=== PATIENT | male | born 1985 | race Hispanic/Latino ===

== ENCOUNTER 2017-11-06 21:52 | Emergency (ER) | payer SELFPAY ==
--- NOTE | 2017-11-06 22:54 | RAD ---
RIGHT FOOT THREE VIEWS: 11/06/17 HISTORY: Foot pain. There is no signs of fracture or dislocation. No other significant bony findings. IMPRESSION: Negative right foot. POS: [facility]
--- NOTE | 2017-11-06 22:55 | RAD ---
RIGHT ANKLE THREE VIEWS: 11/06/17 HISTORY: Ankle pain. There is no signs of fracture, dislocation or joint effusion. Tiny spurs are present of the calcaneus . IMPRESSION: No acute findings. POS: [facility]
== END 2017-11-07 00:39 | disposition left against medical advice (07) ==
LOC: ERS 21:52
DX: Z53.21 Procedure and treatment not carried out due to patient leaving prior to being seen by health care provider (principal)

== ENCOUNTER 2020-12-18 13:10 | Inpatient (IN) | payer SELFPAY ==
[~2020-12-18 13:10] MED LIST: Iopamidol-370 76% 500 ML 1 ML ONE
[2020-12-18] MEDS ORDERED: Ondansetron ODT 4 MG TAB ONE (14:22)
[2020-12-18 14:32] LABS: #Lymphocytes 0.9 thou/uL (1.20-3.40); #Monocytes 0.9 thou/uL (0.11-0.59); %Basophils 0.1 % (0.0-1.0); %Eosinophils 0.3 % (0.0-10.0); %Lymphocytes 7.1 % (21.0-51.0); %Monocytes 6.9 % (0.0-10.0); %Neutrophils 85.6 % (42.0-75.0); Hemoglobin 16.1 g/dL (14.0-18.0); Mean Corpuscular HGB CONC 34.6 g/dL (32.0-36.0); Mean Corpuscular Hemoglobin 34.5 pg (27.0-31.0); Mean Corpuscular Volume 99.9 fL (78.0-98.0); Mean Platelet Volume 7.5 fL (7.4-10.4); Platelet Count 236 thou/uL (130-400); RBC Distribution Width 11.4 % (11.5-14.5); Red Blood Cell (RBC) Count 4.65 mill/uL (4.70-6.10); White Blood Cell (WBC) Count 12.8 thou/uL (4.8-10.8)
[2020-12-18] MEDS ORDERED: Promethazine HCl 25 MG/ML VIAL ONE (14:40)
[2020-12-18] MEDS ORDERED: Fentanyl 100 MCG/2 ML VIAL ONE (14:40)
[2020-12-18] MEDS ORDERED: Famotidine/PF 20 mg/2ml Vial ONE (14:41)
[2020-12-18 14:49] LABS: ALT (SGPT) 107 U/L (8-55); AST (SGOT) 107 U/L (5-34); Albumin 4.4 g/dL (3.5-5.0); Alkaline Phosphatase 97 U/L (40-110); Anion Gap 19 mmol/L (10-20); BUN (Urea Nitrogen) 12 mg/dL (8.9-20.6); Bilirubin, Total 0.9 mg/dL (0.2-1.2); Calc. Creatinine Clearance 0 mL/min (70-130); Calcium 9.5 mg/dL (7.8-10.44); Carbon Dioxide 17 mmol/L (22-29); Chloride 101 mmol/L (98-107); Globulin 4.3 g/dL (2.4-3.5); Glucose 130 mg/dL (70-105); Lipase 897 U/L (8-78); Potassium 3.7 mmol/L (3.5-5.1); Protein, Total 8.7 g/dL (6.0-8.3); Sodium 133 mmol/L (136-145)
[2020-12-18] MEDS ORDERED: Morphine 4 MG/ML VIAL ONE ×2 (15:22→16:11)
[2020-12-18 15:47] LABS: Prothrombin Time 13.5 sec (12.0-14.7)
[2020-12-18 15:50] LABS: PTT 20.6 sec (22.9-36.1)
[2020-12-18] MEDS ORDERED: Ondansetron PF 4 MG/2 ML Vial IVP PRN (18:14)
[2020-12-18] MEDS ORDERED: Metoclopramide HCl 10 MG/2 ML VIAL IVP PRN (18:14)
[2020-12-18] MEDS ORDERED: Morphine 2 MG/ML VIAL SLOW IVP PRN (18:17)
[2020-12-18] MEDS ORDERED: Morphine 2 MG/ML VIAL ONE (18:39)
[2020-12-18] MEDS ORDERED: Diazepam 5 MG TAB PO PRN (18:40)
[2020-12-18] MEDS ORDERED: Thiamine HCl 200 MG/2 ML VIAL IM SCH (18:45)
[2020-12-18] MEDS ORDERED: Diazepam 5 MG TAB PO SCH (18:45)
[2020-12-18] MEDS: Sodium Chloride 0.9% 1,000 ML IV SCH (19:16)
[2020-12-18] MEDS ORDERED: Diazepam 5 MG TAB ONE (20:06)
[2020-12-18 21:52] VITALS: BMI 31.0
[2020-12-18 23:41] LABS: SARS-CoV-2 PCR by NAA Not Detected (NotDetected)
[2020-12-19] MEDS: Sodium Chloride 0.9% 1,000 ML IV SCH ×7 (00:39→23:28)
[2020-12-19] MEDS ORDERED: Diazepam 5 MG TAB PO PRN (04:00)
[2020-12-19] MEDS: Ketorolac Tromethamine 30 MG/ML VIAL IVP PRN ×2 (04:41→10:06)
[2020-12-19 06:01] LABS: #Lymphocytes 0.6 thou/uL (1.20-3.40); #Monocytes 0.8 thou/uL (0.11-0.59); #Neutrophils 9.6 thou/uL (1.40-6.50); %Basophils 0.2 % (0.0-1.0); %Eosinophils 0.3 % (0.0-10.0); %Lymphocytes 5.1 % (21.0-51.0); %Neutrophils 87.4 % (42.0-75.0); Hemoglobin 14.7 g/dL (14.0-18.0); Mean Corpuscular HGB CONC 34.8 g/dL (32.0-36.0); Mean Corpuscular Hemoglobin 34.8 pg (27.0-31.0); Mean Platelet Volume 7.4 fL (7.4-10.4); Platelet Count 175 thou/uL (130-400); RBC Distribution Width 11.2 % (11.5-14.5); Red Blood Cell (RBC) Count 4.24 mill/uL (4.70-6.10)
[2020-12-19 06:27] LABS: ALT (SGPT) 64 U/L (8-55); AST (SGOT) 46 U/L (5-34); Albumin 3.6 g/dL (3.5-5.0); Alkaline Phosphatase 71 U/L (40-110); Anion Gap 11 mmol/L (10-20); BUN (Urea Nitrogen) 6 mg/dL (8.9-20.6); Bilirubin, Total 0.8 mg/dL (0.2-1.2); Calc. Creatinine Clearance 197 mL/min (70-130); Calcium 8.1 mg/dL (7.8-10.44); Carbon Dioxide 23 mmol/L (22-29); Chloride 105 mmol/L (98-107); Globulin 3.2 g/dL (2.4-3.5); Glucose 107 mg/dL (70-105); Potassium 3.5 mmol/L (3.5-5.1); Protein, Total 6.8 g/dL (6.0-8.3); Sodium 135 mmol/L (136-145)
[2020-12-19] MEDS ORDERED: Folic Acid 1 MG TAB PO SCH (09:00)
[2020-12-19] MEDS ORDERED: Magnesium Oxide 400 MG TAB PO SCH (09:00)
[2020-12-19] MEDS ORDERED: Multivitamin W/ Minerals 1 TAB PO SCH (09:00)
[2020-12-19] MEDS ORDERED: Thiamine 100 MG TAB PO SCH (09:00)
[2020-12-20] MEDS: Sodium Chloride 0.9% 1,000 ML IV SCH (05:20)
[2020-12-20 05:25] VITALS: BP 127/70; TEMP 98.9
[2020-12-20 06:37] LABS: #Basophils 0.1 thou/uL (0.0-0.2); #Eosinphils 0.1 thou/uL (0.0-0.7); #Monocytes 1.1 thou/uL (0.11-0.59); #Neutrophils 9.8 thou/uL (1.40-6.50); %Basophils 0.5 % (0.0-1.0); %Eosinophils 0.8 % (0.0-10.0); %Lymphocytes 8.3 % (21.0-51.0); %Neutrophils 81.4 % (42.0-75.0); Hemoglobin 15.5 g/dL (14.0-18.0); Mean Corpuscular Hemoglobin 33.5 pg (27.0-31.0); Mean Platelet Volume 7.7 fL (7.4-10.4); Platelet Count 193 thou/uL (130-400); RBC Distribution Width 11.2 % (11.5-14.5); Red Blood Cell (RBC) Count 4.61 mill/uL (4.70-6.10)
[2020-12-20 06:52] LABS: Anion Gap 13 mmol/L (10-20); BUN (Urea Nitrogen) 4 mg/dL (8.9-20.6); Calc. Creatinine Clearance 189 mL/min (70-130); Calcium 9.1 mg/dL (7.8-10.44); Carbon Dioxide 21 mmol/L (22-29); Chloride 104 mmol/L (98-107); Glucose 130 mg/dL (70-105); Potassium 3.4 mmol/L (3.5-5.1); Sodium 135 mmol/L (136-145)
== END 2020-12-20 07:09 | disposition left against medical advice (07) | DRG 440 ==
LOC: ERS 13:10 → ERHOLD 17:32 → T4-A 21:47 → OBSVTOIN 12-19 12:44
PROVIDERS: ADMIT Internal Medicine; ATTEND Internal Medicine
PROC: HZ2ZZZZ Detoxification Services for Substance Abuse Treatment (ICD-10-PCS; principal; 2020-12-19)
DX: K85.20 Alcohol induced acute pancreatitis without necrosis or infection (principal); F10.20 Alcohol dependence, uncomplicated; Z20.822 Contact with and (suspected) exposure to COVID-19; Z71.41 Alcohol abuse counseling and surveillance of alcoholic
CPT/HCPCS: 36415; 71045; 74177; 80048; 80053; 83605; 83690; 83735; 84484; 85025; 85610; 85730; 86850; 86900; 86901; 93005; 94760; 96372; 96375; 96376; G0378; J1885; J2270; J2550; J3010; J3411; J3475; J3490; Q0162; Q9967; S0028; U0003; U0005

== ENCOUNTER 2021-05-06 15:56 | Emergency (ER) | payer SELFPAY ==
[2021-05-06] MEDS ORDERED: Ondansetron PF 4 MG/2 ML Vial ONE (16:42)
[2021-05-06] MEDS ORDERED: Famotidine/PF 20 mg/2ml Vial ONE (16:42)
[2021-05-06] MEDS ORDERED: Morphine 4 MG/ML VIAL ONE (16:42)
[2021-05-06 17:03] LABS: #Basophils 0.1 thou/uL (0.0-0.2); #Eosinphils 0.2 thou/uL (0.0-0.7); #Lymphocytes 1.3 thou/uL (1.20-3.40); #Neutrophils 11.4 thou/uL (1.40-6.50); %Basophils 0.7 % (0.0-1.0); %Eosinophils 1.1 % (0.0-10.0); %Lymphocytes 9.2 % (21.0-51.0); %Monocytes 7.4 % (0.0-10.0); %Neutrophils 81.7 % (42.0-75.0); Hemoglobin 15.5 g/dL (14.0-18.0); Mean Corpuscular HGB CONC 34.6 g/dL (32.0-36.0); Mean Corpuscular Hemoglobin 34.1 pg (27.0-31.0); Mean Corpuscular Volume 98.3 fL (78.0-98.0); Mean Platelet Volume 7.7 fL (7.4-10.4); Platelet Count 281 thou/uL (130-400); RBC Distribution Width 11.5 % (11.5-14.5); Red Blood Cell (RBC) Count 4.54 mill/uL (4.70-6.10); White Blood Cell (WBC) Count 13.9 thou/uL (4.8-10.8)
[2021-05-06 17:26] LABS: ALT (SGPT) 53 U/L (8-55); AST (SGOT) 35 U/L (5-34); Alkaline Phosphatase 88 U/L (40-110); Anion Gap 12 mmol/L (10-20); BUN (Urea Nitrogen) 9 mg/dL (8.9-20.6); Bilirubin, Total 0.4 mg/dL (0.2-1.2); Calc. Creatinine Clearance 0 mL/min (70-130); Calcium 9.3 mg/dL (7.8-10.44); Carbon Dioxide 26 mmol/L (22-29); Chloride 102 mmol/L (98-107); Globulin 3.6 g/dL (2.4-3.5); Glucose 95 mg/dL (70-105); Lipase 648 U/L (8-78); Potassium 3.9 mmol/L (3.5-5.1); Protein, Total 7.6 g/dL (6.0-8.3); Sodium 136 mmol/L (136-145)
== END 2021-05-06 18:27 | disposition home or self-care (01) ==
LOC: ERS 15:56
DX: K85.90 Acute pancreatitis without necrosis or infection, unspecified (principal)
CPT/HCPCS: 80053; 83690; 85025; 94760; 96374; 96375; J2270; J2405; S0028

== ENCOUNTER 2022-02-11 10:11 | Emergency (ER) | payer SELFPAY | END 2022-02-11 11:52 | disposition home or self-care (01) | LOC: ERS 10:11 | DX: B02.9 Zoster without complications (principal) | CPT/HCPCS: 99283 ==

== ENCOUNTER 2022-05-03 11:03 | Inpatient (IN) | payer SELFPAY ==
[2022-05-03 12:32] LABS: #Eosinphils 0.1 thou/uL (0.0-0.7); #Lymphocytes 1.3 thou/uL (1.20-3.40); #Monocytes 0.7 thou/uL (0.11-0.59); #Neutrophils 9.2 thou/uL (1.40-6.50); %Basophils 0.3 % (0.0-1.0); %Eosinophils 0.6 % (0.0-10.0); %Lymphocytes 11.8 % (21.0-51.0); %Monocytes 6.2 % (0.0-10.0); %Neutrophils 81.1 % (42.0-75.0); Hemoglobin 15.9 g/dL (14.0-18.0); Mean Corpuscular HGB CONC 34.9 g/dL (32.0-36.0); Mean Corpuscular Hemoglobin 33.9 pg (27.0-31.0); Mean Platelet Volume 7.8 fL (7.4-10.4); Platelet Count 285 thou/uL (130-400); RBC Distribution Width 11.2 % (11.5-14.5); Red Blood Cell (RBC) Count 4.69 mill/uL (4.70-6.10); White Blood Cell (WBC) Count 11.3 thou/uL (4.8-10.8)
[2022-05-03] MEDS ORDERED: Ketorolac Tromethamine 30 MG/ML VIAL ONE (12:42)
[2022-05-03 12:55] LABS: ALT (SGPT) 30 U/L (8-55); AST (SGOT) 29 U/L (5-34); Alkaline Phosphatase 75 U/L (40-110); Anion Gap 18 mmol/L (10-20); BUN (Urea Nitrogen) 11 mg/dL (8.9-20.6); Bilirubin, Total 1.5 mg/dL (0.2-1.2); Calc. Creatinine Clearance 0 mL/min (70-130); Calcium 9.2 mg/dL (7.8-10.44); Carbon Dioxide 19 mmol/L (22-29); Chloride 102 mmol/L (98-107); Estimated GFR 115; Globulin 3.7 g/dL (2.4-3.5); Glucose 106 mg/dL (70-105); Lipase 468 U/L (8-78); Potassium 3.7 mmol/L (3.5-5.1); Protein, Total 7.7 g/dL (6.0-8.3); Sodium 135 mmol/L (136-145)
[2022-05-03] MEDS ORDERED: Ondansetron PF 4 MG/2 ML Vial ONE (14:01)
[2022-05-03] MEDS ORDERED: Morphine 4 MG/ML VIAL ONE (14:01)
[2022-05-03] MEDS ORDERED: Multivitamins, Adult 10 ML, Thiamine HCl 100 MG, Folic Acid 1 MG in Dextrose 5 %-0.45 %... IV SCH (15:15)
[2022-05-03] MEDS ORDERED: Lorazepam 1 MG TAB PO PRN (15:19)
[2022-05-03] MEDS ORDERED: Lorazepam 2 MG/ML VIAL IM PRN (15:19)
[2022-05-03] MEDS ORDERED: Acetaminophen 325 MG TAB PO PRN (15:20)
[2022-05-03] MEDS ORDERED: Ondansetron PF 4 MG/2 ML Vial IVP PRN (15:20)
[2022-05-03] MEDS ORDERED: Ondansetron ODT 4 MG TAB PO PRN (15:20)
[2022-05-03] MEDS ORDERED: Electrolyte Replacement Protocol 1 EACH FS SCH (15:30)
[2022-05-03 15:59] VITALS: BMI 31.4
[2022-05-03 16:10] LABS: Magnesium 2.1 mg/dL (1.6-2.6)
[2022-05-03] MEDS ORDERED: Electrolyte Replacement Protocol FS PRN (16:15)
[2022-05-03] MEDS: Lorazepam 1 MG TAB PO SCH ×2 (16:34→22:34)
[2022-05-03] MEDS: Morphine 4 MG/ML VIAL SLOW IVP PRN ×2 (16:35→20:13)
[2022-05-03] MEDS: Sodium Chloride 0.9% 1,000 ML IV SCH ×2 (16:35→20:21)
[2022-05-03] MEDS: Ketorolac Tromethamine 30 MG/ML VIAL IVP PRN ×2 (18:35→23:40)
[2022-05-03] MEDS: Famotidine/PF 20 mg/2ml Vial SLOW IVP SCH (20:13)
[2022-05-04] MEDS: Morphine 4 MG/ML VIAL SLOW IVP PRN ×5 (01:38→20:27)
[2022-05-04] MEDS ORDERED: Pantoprazole 40 MG VIAL IVP SCH (02:00)
[2022-05-04] MEDS: Lorazepam 1 MG TAB PO SCH ×4 (03:06→20:38)
[2022-05-04] MEDS: Sodium Chloride 0.9% 1,000 ML IV SCH ×3 (05:15→18:14)
[2022-05-04] MEDS: Ketorolac Tromethamine 30 MG/ML VIAL IVP PRN (05:15)
[2022-05-04 07:31] LABS: #Eosinphils 0.1 thou/uL (0.0-0.7); #Lymphocytes 0.8 thou/uL (1.20-3.40); #Monocytes 1.1 thou/uL (0.11-0.59); #Neutrophils 14.2 thou/uL (1.40-6.50); %Basophils 0.2 % (0.0-1.0); %Eosinophils 0.3 % (0.0-10.0); %Lymphocytes 5.2 % (21.0-51.0); %Monocytes 6.5 % (0.0-10.0); %Neutrophils 87.7 % (42.0-75.0); Hemoglobin 15.2 g/dL (14.0-18.0); Mean Corpuscular HGB CONC 34.3 g/dL (32.0-36.0); Mean Corpuscular Hemoglobin 34.1 pg (27.0-31.0); Mean Corpuscular Volume 99.5 fl (78.0-98.0); Mean Platelet Volume 7.6 fL (7.4-10.4); Platelet Count 251 thou/uL (130-400); RBC Distribution Width 11.3 % (11.5-14.5); Red Blood Cell (RBC) Count 4.47 mill/uL (4.70-6.10); White Blood Cell (WBC) Count 16.1 thou/uL (4.8-10.8)
[2022-05-04 07:56] LABS: ALT (SGPT) 21 U/L (8-55); AST (SGOT) 16 U/L (5-34); Albumin 3.4 g/dL (3.5-5.0); Alkaline Phosphatase 62 U/L (40-110); Anion Gap 12 mmol/L (10-20); BUN (Urea Nitrogen) 5 mg/dL (8.9-20.6); Bilirubin, Total 1.8 mg/dL (0.2-1.2); Calc. Creatinine Clearance 185 mL/min (70-130); Calcium 8.2 mg/dL (7.8-10.44); Carbon Dioxide 19 mmol/L (22-29); Chloride 107 mmol/L (98-107); Estimated GFR 122; Globulin 2.9 g/dL (2.4-3.5); Glucose 110 mg/dL (70-105); Magnesium 1.8 mg/dL (1.6-2.6); Potassium 3.7 mmol/L (3.5-5.1); Protein, Total 6.3 g/dL (6.0-8.3); Sodium 134 mmol/L (136-145)
[2022-05-04 08:11] LABS: Lipase 1346 U/L (8-78)
[2022-05-04] MEDS: Folic Acid 1 MG TAB PO SCH (08:21)
[2022-05-04] MEDS: Famotidine/PF 20 mg/2ml Vial SLOW IVP SCH ×2 (08:21→20:27)
[2022-05-04] MEDS: Multivit, Therapeutic 1 TAB PO SCH (08:22)
[2022-05-04] MEDS: Thiamine 100 MG TAB PO SCH (08:22)
[2022-05-04] MEDS ORDERED: Lorazepam 1 MG TAB PO PRN (15:19)
[2022-05-05] MEDS: Morphine 4 MG/ML VIAL SLOW IVP PRN ×4 (00:56→15:59)
[2022-05-05] MEDS: Sodium Chloride 0.9% 1,000 ML IV SCH ×3 (00:57→13:23)
[2022-05-05] MEDS: Lorazepam 1 MG TAB PO SCH ×2 (02:38→09:09)
[2022-05-05 07:27] LABS: Hemoglobin 13.1 g/dL (14.0-18.0); Mean Corpuscular HGB CONC 34.4 g/dL (32.0-36.0); Mean Corpuscular Volume 99.1 fl (78.0-98.0); Mean Platelet Volume 7.8 fL (7.4-10.4); Platelet Count 222 thou/uL (130-400); RBC Distribution Width 11.3 % (11.5-14.5); Red Blood Cell (RBC) Count 3.84 mill/uL (4.70-6.10); White Blood Cell (WBC) Count 15.7 thou/uL (4.8-10.8)
[2022-05-05 07:44] LABS: Anion Gap 10 mmol/L (10-20); BUN (Urea Nitrogen) Less than 4 mg/dL (8.9-20.6); Calc. Creatinine Clearance 191 mL/min (70-130); Calcium 8.2 mg/dL (7.8-10.44); Carbon Dioxide 21 mmol/L (22-29); Chloride 105 mmol/L (98-107); Estimated GFR 123; Glucose 98 mg/dL (70-105); Potassium 3.3 mmol/L (3.5-5.1); Sodium 133 mmol/L (136-145)
[2022-05-05] MEDS ORDERED: Potassium Chloride 20 MEQ TAB PO SCH (08:00)
[2022-05-05] MEDS: Famotidine/PF 20 mg/2ml Vial SLOW IVP SCH ×2 (09:09→20:34)
[2022-05-05] MEDS: Folic Acid 1 MG TAB PO SCH (09:09)
[2022-05-05] MEDS: Thiamine 100 MG TAB PO SCH (09:09)
[2022-05-05] MEDS: Multivit, Therapeutic 1 TAB PO SCH (09:09)
[2022-05-05] MEDS: Lorazepam 0.5 MG TAB PO SCH ×2 (14:59→20:34)
[2022-05-05] MEDS ORDERED: Lorazepam 1 MG TAB PO PRN (15:19)
[2022-05-06] MEDS: Sodium Chloride 0.9% 1,000 ML IV SCH ×2 (00:41→09:03)
[2022-05-06] MEDS: Lorazepam 0.5 MG TAB PO SCH ×2 (03:23→09:02)
[2022-05-06 06:44] LABS: Hemoglobin 12.3 g/dL (14.0-18.0); Mean Corpuscular HGB CONC 33.5 g/dL (32.0-36.0); Mean Corpuscular Hemoglobin 32.9 pg (27.0-31.0); Mean Corpuscular Volume 98.3 fl (78.0-98.0); Mean Platelet Volume 7.8 fL (7.4-10.4); Platelet Count 225 thou/uL (130-400); RBC Distribution Width 11.3 % (11.5-14.5); Red Blood Cell (RBC) Count 3.75 mill/uL (4.70-6.10); White Blood Cell (WBC) Count 13.7 thou/uL (4.8-10.8)
[2022-05-06 07:07] LABS: Anion Gap 10 mmol/L (10-20); BUN (Urea Nitrogen) Less than 4 mg/dL (8.9-20.6); Calc. Creatinine Clearance 185 mL/min (70-130); Calcium 8.8 mg/dL (7.8-10.44); Carbon Dioxide 22 mmol/L (22-29); Chloride 105 mmol/L (98-107); Estimated GFR 122; Glucose 111 mg/dL (70-105); Lipase 566 U/L (8-78); Potassium 3.3 mmol/L (3.5-5.1); Sodium 134 mmol/L (136-145)
[2022-05-06] MEDS ORDERED: Potassium Chloride 20 MEQ TAB PO SCH (08:30)
[2022-05-06] MEDS: Multivit, Therapeutic 1 TAB PO SCH (08:56)
[2022-05-06] MEDS: Thiamine 100 MG TAB PO SCH (08:56)
[2022-05-06] MEDS: Famotidine/PF 20 mg/2ml Vial SLOW IVP SCH (08:56)
[2022-05-06] MEDS: Folic Acid 1 MG TAB PO SCH (08:56)
[2022-05-06 11:02] VITALS: BP 130/84; TEMP 98.1
[2022-05-06] MEDS ORDERED: Lorazepam 0.5 MG TAB PO PRN (15:19)
== END 2022-05-06 11:04 | disposition home or self-care (01) | DRG 439 ==
LOC: ERS 11:03 → T4-A 15:44 → OBSVTOIN 05-04 13:16
PROVIDERS: ADMIT Internal Medicine; ATTEND Internal Medicine
DX: K85.20 Alcohol induced acute pancreatitis without necrosis or infection (principal); E87.1 Hypo-osmolality and hyponatremia; Z20.822 Contact with and (suspected) exposure to COVID-19; F10.20 Alcohol dependence, uncomplicated
CPT/HCPCS: 36415; 71045; 76705; 80048; 80053; 83690; 83735; 84484; 85025; 85027; 93005; 94760; 96361; 96374; 96375; 96376; C9113; G0378; J1885; J2270; J2405; J3411; J7042; J7050; Q0162; S0028; U0003; U0005

== ENCOUNTER 2022-08-26 19:40 | Emergency (ER) | payer SELFPAY ==
[2022-08-26 20:44] LABS: #Lymphocytes 0.5 thou/uL (1.20-3.40); #Monocytes 0.6 thou/uL (0.11-0.59); #Neutrophils 10.6 thou/uL (1.40-6.50); %Basophils 0.4 % (0.0-1.0); %Eosinophils 0.1 % (0.0-10.0); %Lymphocytes 4.4 % (21.0-51.0); %Monocytes 5.2 % (0.0-10.0); %Neutrophils 89.9 % (42.0-75.0); Hemoglobin 16.5 g/dL (14.0-18.0); Mean Corpuscular HGB CONC 34.5 g/dL (32.0-36.0); Mean Corpuscular Volume 98.5 fl (78.0-98.0); Mean Platelet Volume 7.4 fL (7.4-10.4); Platelet Count 256 10x3/uL (130-400); RBC Distribution Width 11.6 % (11.5-14.5); Red Blood Cell (RBC) Count 4.85 mill/uL (4.70-6.10); White Blood Cell (WBC) Count 11.8 10x3/uL (4.8-10.8)
[2022-08-26 21:09] LABS: ALT (SGPT) 67 U/L (8-55); AST (SGOT) 52 U/L (5-34); Albumin 4.3 g/dL (3.5-5.0); Alkaline Phosphatase 89 U/L (40-110); Anion Gap 16 mmol/L (10-20); BUN (Urea Nitrogen) 10 mg/dL (8.9-20.6); Calc. Creatinine Clearance 0 mL/min (70-130); Calcium 9.1 mg/dL (7.8-10.44); Carbon Dioxide 18 mmol/L (22-29); Chloride 103 mmol/L (98-107); Estimated GFR 117; Globulin 3.8 g/dL (2.4-3.5); Glucose 135 mg/dL (70-105); Lipase 612 U/L (8-78); Potassium 3.8 mmol/L (3.5-5.1); Protein, Total 8.1 g/dL (6.0-8.3); Sodium 133 mmol/L (136-145)
[2022-08-26 21:27] LABS: Bacteria/HPF None Seen HPF (None Seen); Bilirubin Negative (Negative); Blood, Urine 1+ (Negative); Clarity Clear (Clear); Glucose, Urine (Dipstick) Normal (Negative); Ketone, Urine 40 mg/dL (Negative); Leukocyte Negative Leu/uL (Negative); Nitrite Negative (Negative); Protein, Urine (Dipstick) 100 mg/dL (Neg-Trace); Specific Gravity, Urine 1.041 (1.002-1.036); Squamous Epithelial 0-3 HPF (0-3); Urobilinogen Normal mg/dL (Less than 2); WBC/HPF 0-3 HPF (0-3)
[2022-08-26] MEDS ORDERED: Ondansetron PF 4 MG/2 ML Vial ONE (22:30)
[2022-08-26] MEDS ORDERED: Morphine 4 MG/ML VIAL ONE (22:30)
== END 2022-08-26 23:50 | disposition home or self-care (01) ==
LOC: ERS 19:40
DX: K85.90 Acute pancreatitis without necrosis or infection, unspecified (principal); D72.829 Elevated white blood cell count, unspecified
CPT/HCPCS: 36415; 74177; 80053; 81003; 81015; 83690; 85025; 96374; 96375; J2270; J2405; Q9967

== ENCOUNTER 2022-08-27 16:48 | Emergency (ER) | payer SELFPAY ==
[2022-08-27 18:11] LABS: #Lymphocytes 0.6 thou/uL (1.20-3.40); #Monocytes 0.9 thou/uL (0.11-0.59); #Neutrophils 13.9 thou/uL (1.40-6.50); %Basophils 0.1 % (0.0-1.0); %Eosinophils 0.2 % (0.0-10.0); %Lymphocytes 3.9 % (21.0-51.0); %Neutrophils 89.8 % (42.0-75.0); Hemoglobin 16.5 g/dL (14.0-18.0); Mean Corpuscular HGB CONC 34.9 g/dL (32.0-36.0); Mean Corpuscular Hemoglobin 34.4 pg (27.0-31.0); Mean Corpuscular Volume 98.4 fl (78.0-98.0); Mean Platelet Volume 7.5 fL (7.4-10.4); Platelet Count 233 10x3/uL (130-400); RBC Distribution Width 11.6 % (11.5-14.5); Red Blood Cell (RBC) Count 4.81 mill/uL (4.70-6.10); White Blood Cell (WBC) Count 15.5 10x3/uL (4.8-10.8)
[2022-08-27 18:31] LABS: ALT (SGPT) 50 U/L (8-55); AST (SGOT) 38 U/L (5-34); Albumin 4.1 g/dL (3.5-5.0); Alkaline Phosphatase 79 U/L (40-110); Anion Gap 15 mmol/L (10-20); BUN (Urea Nitrogen) 5 mg/dL (8.9-20.6); Bilirubin, Total 0.9 mg/dL (0.2-1.2); Calc. Creatinine Clearance 0 mL/min (70-130); Calcium 8.8 mg/dL (7.8-10.44); Carbon Dioxide 21 mmol/L (22-29); Chloride 100 mmol/L (98-107); Estimated GFR 119; Globulin 3.7 g/dL (2.4-3.5); Glucose 137 mg/dL (70-105); Lipase 856 U/L (8-78); Potassium 3.7 mmol/L (3.5-5.1); Protein, Total 7.8 g/dL (6.0-8.3); Sodium 132 mmol/L (136-145)
== END 2022-08-27 19:41 | disposition left against medical advice (07) ==
LOC: ERS 16:48
DX: Z53.29 Procedure and treatment not carried out because of patient's decision for other reasons (principal)
CPT/HCPCS: 36415; 80053; 83690; 85025

== ENCOUNTER 2022-08-28 01:30 | Inpatient (IN) | payer SELFPAY ==
[2022-08-28] MEDS ORDERED: Ondansetron PF 4 MG/2 ML Vial ONE (02:02)
[2022-08-28] MEDS ORDERED: HYDROmorphone 0.5 MG/0.5 ML SYRINGE ONE (02:02)
[2022-08-28] MEDS ORDERED: Pantoprazole 40 MG VIAL ONE ×2 (02:05→09:39)
[2022-08-28] MEDS ORDERED: Lorazepam 1 MG TAB PO PRN (02:13)
[2022-08-28] MEDS ORDERED: Ondansetron ODT 4 MG TAB PO PRN (02:13)
[2022-08-28] MEDS ORDERED: Ondansetron PF 4 MG/2 ML Vial IVP PRN (02:13)
[2022-08-28] MEDS ORDERED: Lorazepam 2 MG/ML VIAL IM PRN (02:13)
[2022-08-28 02:32] LABS: #Lymphocytes 0.5 thou/uL (1.20-3.40); #Neutrophils 17.6 thou/uL (1.40-6.50); %Basophils 0.2 % (0.0-1.0); %Eosinophils 0.1 % (0.0-10.0); %Lymphocytes 2.5 % (21.0-51.0); %Monocytes 5.2 % (0.0-10.0); %Neutrophils 91.9 % (42.0-75.0); Hemoglobin 16.3 g/dL (14.0-18.0); Mean Corpuscular HGB CONC 34.2 g/dL (32.0-36.0); Mean Corpuscular Hemoglobin 33.7 pg (27.0-31.0); Mean Corpuscular Volume 98.3 fl (78.0-98.0); Mean Platelet Volume 7.7 fL (7.4-10.4); Platelet Count 227 10x3/uL (130-400); RBC Distribution Width 11.7 % (11.5-14.5); Red Blood Cell (RBC) Count 4.83 mill/uL (4.70-6.10); White Blood Cell (WBC) Count 19.1 10x3/uL (4.8-10.8)
[2022-08-28 02:55] LABS: ALT (SGPT) 46 U/L (8-55); AST (SGOT) 31 U/L (5-34); Alkaline Phosphatase 71 U/L (40-110); Anion Gap 14 mmol/L (10-20); BUN (Urea Nitrogen) 5 mg/dL (8.9-20.6); Bilirubin, Total 0.9 mg/dL (0.2-1.2); Calc. Creatinine Clearance 0 mL/min (70-130); Calcium 9.1 mg/dL (7.8-10.44); Carbon Dioxide 22 mmol/L (22-29); Chloride 100 mmol/L (98-107); Estimated GFR 122; Globulin 3.6 g/dL (2.4-3.5); Glucose 128 mg/dL (70-105); Lipase 577 U/L (8-78); Magnesium 1.7 mg/dL (1.6-2.6); Potassium 3.5 mmol/L (3.5-5.1); Protein, Total 7.6 g/dL (6.0-8.3); Sodium 132 mmol/L (136-145)
[2022-08-28] MEDS: Lactated Ringer's 1,000 ML IV SCH ×4 (03:22→18:04)
[2022-08-28] MEDS ORDERED: Electrolyte Replacement Protocol 1 EACH FS SCH (04:45)
[2022-08-28 05:37] LABS: SARS-CoV-2 NAA Rapid Test Not Detected (NotDetected)
[2022-08-28] MEDS: Morphine 4 MG/ML VIAL SLOW IVP PRN ×3 (05:56→18:05)
[2022-08-28] MEDS ORDERED: Morphine 4 MG/ML VIAL ONE (05:57)
[2022-08-28 06:18] LABS: Bacteria/HPF None Seen HPF (None Seen); Bilirubin Negative (Negative); Blood, Urine 1+ (Negative); Clarity Clear (Clear); Glucose, Urine (Dipstick) Normal (Negative); Ketone, Urine 20 mg/dL (Negative); Leukocyte Negative Leu/uL (Negative); Nitrite Negative (Negative); Protein, Urine (Dipstick) 30 mg/dL (Neg-Trace); RBC/HPF 0-3 HPF (0-3); Specific Gravity, Urine 1.011 (1.002-1.036); Squamous Epithelial None Seen HPF (0-3); Urobilinogen Normal mg/dL (Less than 2); WBC/HPF 0-3 HPF (0-3)
[2022-08-28] MEDS ORDERED: Magnesium 2 GM/50 ML BAG (IN WATER) ONE (07:33)
[2022-08-28] MEDS ORDERED: Magnesium 2 GM/50 ML(in water) 2 GM in Premix Bag 1 BAG IVPB SCH (08:00)
[2022-08-28] MEDS ORDERED: Potassium Chloride 20 MEQ/100 ML PREMIX BAG ONE ×2 (08:39→10:56)
[2022-08-28] MEDS: Potassium Chloride 20 MEQ in Premix Bag 1 BAG IVPB SCH ×2 (08:48→10:55)
[2022-08-28] MEDS ORDERED: Folic Acid 1 MG TAB ONE (09:35)
[2022-08-28] MEDS: Multivit, Therapeutic 1 TAB PO SCH (09:37)
[2022-08-28] MEDS: Folic Acid 1 MG TAB PO SCH (09:37)
[2022-08-28] MEDS ORDERED: Acetaminophen 325 MG TAB ONE (09:39)
[2022-08-28] MEDS: Pantoprazole 40 MG VIAL IVP SCH ×2 (10:06→20:01)
[2022-08-28] MEDS: Acetaminophen 325 MG TAB PO PRN ×2 (10:06→23:40)
[2022-08-28 14:07] VITALS: BMI 26.9
[2022-08-29] MEDS: Lactated Ringer's 1,000 ML IV SCH ×3 (00:18→09:33)
[2022-08-29] MEDS ORDERED: Lorazepam 1 MG TAB PO PRN (02:13)
[2022-08-29 05:50] LABS: #Lymphocytes 0.9 thou/uL (1.20-3.40); #Monocytes 1.2 thou/uL (0.11-0.59); #Neutrophils 14.1 thou/uL (1.40-6.50); %Basophils 0.1 % (0.0-1.0); %Eosinophils 0.1 % (0.0-10.0); %Lymphocytes 5.4 % (21.0-51.0); %Monocytes 7.3 % (0.0-10.0); %Neutrophils 87.1 % (42.0-75.0); Hemoglobin 14.3 g/dL (14.0-18.0); Mean Corpuscular HGB CONC 34.5 g/dL (32.0-36.0); Mean Corpuscular Hemoglobin 34.5 pg (27.0-31.0); Platelet Count 197 10x3/uL (130-400); RBC Distribution Width 11.8 % (11.5-14.5); Red Blood Cell (RBC) Count 4.15 mill/uL (4.70-6.10); White Blood Cell (WBC) Count 16.2 10x3/uL (4.8-10.8)
[2022-08-29 06:19] LABS: ALT (SGPT) 28 U/L (8-55); AST (SGOT) 27 U/L (5-34); Alkaline Phosphatase 83 U/L (40-110); Anion Gap 13 mmol/L (10-20); BUN (Urea Nitrogen) 6 mg/dL (8.9-20.6); Bilirubin, Total 0.7 mg/dL (0.2-1.2); Calc. Creatinine Clearance 201 mL/min (70-130); Calcium 8.5 mg/dL (7.8-10.44); Carbon Dioxide 23 mmol/L (22-29); Chloride 102 mmol/L (98-107); Estimated GFR 125; Globulin 3.2 g/dL (2.4-3.5); Glucose 89 mg/dL (70-105); Lipase 139 U/L (8-78); Potassium 3.4 mmol/L (3.5-5.1); Protein, Total 6.2 g/dL (6.0-8.3); Sodium 135 mmol/L (136-145)
[2022-08-29 08:00] LABS: Magnesium 1.9 mg/dL (1.6-2.6)
[2022-08-29] MEDS ORDERED: Potassium Chloride 20 MEQ in Premix Bag 1 BAG IVPB SCH (08:00)
[2022-08-29] MEDS: Multivit, Therapeutic 1 TAB PO SCH (08:13)
[2022-08-29] MEDS: Folic Acid 1 MG TAB PO SCH (08:13)
[2022-08-29] MEDS: Pantoprazole 40 MG VIAL IVP SCH (08:15)
[2022-08-29] MEDS ORDERED: Magnesium 2 GM/50 ML(in water) 2 GM in Premix Bag 1 BAG IVPB SCH (08:15)
[2022-08-29] MEDS ORDERED: Thiamine HCl 200 MG/2 ML VIAL IM SCH (09:00)
[2022-08-29] MEDS ORDERED: Lactated Ringer's 1,000 ML IV SCH (09:01)
[2022-08-29] MEDS ORDERED: Potassium Chloride 20 MEQ TAB PO SCH (09:30)
[2022-08-29] MEDS ORDERED: Thiamine 100 MG TAB PO SCH (09:30)
[2022-08-29 13:14] VITALS: BP 144/83; TEMP 99
[2022-08-30] MEDS ORDERED: Lorazepam 1 MG TAB PO PRN (02:13)
[2022-08-30] MEDS ORDERED: Thiamine 100 MG TAB PO SCH (09:00)
[2022-08-31] MEDS ORDERED: Lorazepam 0.5 MG TAB PO PRN (02:13)
[2022-08-31] MEDS ORDERED: Thiamine 100 MG TAB PO SCH (04:00)
== END 2022-08-29 17:38 | disposition home or self-care (01) | DRG 439 ==
LOC: ERS 01:30 → ERHOLD 02:22 → OBSVTOIN 12:33 → MSONC 13:40
PROVIDERS: ADMIT Internal Medicine; ATTEND Family Medicine
DX: K85.20 Alcohol induced acute pancreatitis without necrosis or infection (principal); E87.1 Hypo-osmolality and hyponatremia; Z20.822 Contact with and (suspected) exposure to COVID-19; E87.6 Hypokalemia; Z79.899 Other long term (current) drug therapy
CPT/HCPCS: 36415; 71045; 80053; 81003; 81015; 83690; 83735; 84478; 84484; 85025; 93005; C9113; J1170; J2270; J2405; J3475; J3480; J7120; U0002

== ENCOUNTER 2024-04-08 23:26 | Emergency (ER) | payer SELFPAY ==
[2024-04-09 00:20] LABS: #Basophils 0.07 10x3/uL (0.0-0.2); %Basophils 1.3 % (0.0-1.0); %Eosinophils 2.9 % (0.0-10.0); %Lymphocytes 31.1 % (21.0-51.0); %Monocytes 8.3 % (0.0-10.0); Hematocrit 38.8 % (42.0-52.0); Hemoglobin 13.6 g/dL (14.0-18.0); Mean Corpuscular HGB CONC 35.1 g/dL (32.0-36.0); Mean Corpuscular Hemoglobin 34.1 pg (27.0-31.0); Mean Corpuscular Volume 97.2 fL (78.0-98.0); Mean Platelet Volume 9.5 fL (7.4-10.4); Platelet Count 295 10x3/uL (130-400); RBC Distribution Width 12.1 % (11.5-14.5); Red Blood Cell (RBC) Count 3.99 mill/uL (4.70-6.10)
[2024-04-09 00:38] LABS: ALT (SGPT) 38 U/L (8-55); AST (SGOT) 33 U/L (5-34); Albumin 3.8 g/dL (3.5-5.0); Alkaline Phosphatase 70 U/L (40-110); Anion Gap 12 mmol/L (10-20); BUN (Urea Nitrogen) 9 mg/dL (8.9-20.6); Bilirubin, Total 0.2 mg/dL (0.2-1.2); Calc. Creatinine Clearance 0 mL/min (70-130); Calcium 9.1 mg/dL (7.8-10.44); Carbon Dioxide 23 mmol/L (22-29); Chloride 107 mmol/L (98-107); Estimated GFR 119; Globulin 3.6 g/dL (2.4-3.5); Glucose 93 mg/dL (70-105); Lipase 15 U/L (8-78); Potassium 3.9 mmol/L (3.5-5.1); Protein, Total 7.4 g/dL (6.0-8.3); Sodium 138 mmol/L (136-145)
[2024-04-09] MEDS ORDERED: Ondansetron ODT 4 MG TAB ONE (02:25)
[2024-04-09] MEDS ORDERED: Ketorolac Tromethamine 30 MG (1 mL) VIAL ONE (02:26)
== END 2024-04-09 03:28 | disposition home or self-care (01) ==
LOC: ERS 23:26
DX: R11.2 Nausea with vomiting, unspecified (principal); R19.7 Diarrhea, unspecified; R42 Dizziness and giddiness
CPT/HCPCS: 36415; 80053; 82550; 83690; 85025; 96372; 99284; J1885; Q0162

== ENCOUNTER 2024-05-09 13:23 | Inpatient (IN) | payer SELFPAY ==
[~2024-05-09 13:23] MED LIST changes: -Iopamidol-370 76% 500 ML 1 ML ONE; +Iopamidol-370 76% 500 ML MDV (1 ML CHARGE) ONE
[2024-05-09 13:47] LABS: #Basophils 0.06 10x3/uL (0.0-0.2); %Basophils 0.7 % (0.0-1.0); %Eosinophils 1.3 % (0.0-10.0); %Lymphocytes 11.3 % (21.0-51.0); %Neutrophils 79.5 % (42.0-75.0); Hematocrit 43.1 % (42.0-52.0); Hemoglobin 15.6 g/dL (14.0-18.0); Mean Corpuscular HGB CONC 36.2 g/dL (32.0-36.0); Mean Corpuscular Hemoglobin 34.1 pg (27.0-31.0); Mean Corpuscular Volume 94.3 fL (78.0-98.0); Mean Platelet Volume 9.6 fL (7.4-10.4); Platelet Count 275 10x3/uL (130-400); RBC Distribution Width 11.9 % (11.5-14.5); Red Blood Cell (RBC) Count 4.57 mill/uL (4.70-6.10)
[2024-05-09 14:01] LABS: Acetaminophen Less than 10 mcg/mL (Less than 10); Alcohol Less than 10.0 mg/dL (Less than 10); Salicylate Less than 8.0 mg/dL (Less than 8.0)
[2024-05-09 14:02] LABS: ALT (SGPT) 25 U/L (8-55); AST (SGOT) 27 U/L (5-34); Albumin 3.7 g/dL (3.5-5.0); Alkaline Phosphatase 82 U/L (40-110); Anion Gap 15 mmol/L (10-20); BUN (Urea Nitrogen) 5 mg/dL (8.9-20.6); Bilirubin, Total 0.8 mg/dL (0.2-1.2); Calc. Creatinine Clearance 0 mL/min (70-130); Calcium 8.6 mg/dL (7.8-10.44); Carbon Dioxide 20 mmol/L (22-29); Chloride 103 mmol/L (98-107); Estimated GFR 115; Glucose 133 mg/dL (70-105); Lipase 181 U/L (8-78); Potassium 3.6 mmol/L (3.5-5.1); Protein, Total 7.7 g/dL (6.0-8.3); Sodium 134 mmol/L (136-145)
[2024-05-09] MEDS ORDERED: Ondansetron PF 4 MG/2 ML Vial ONE (14:02)
[2024-05-09] MEDS ORDERED: Morphine 4 MG/ML VIAL ONE (14:02)
[2024-05-09] MEDS ORDERED: Ketorolac Tromethamine 30 MG (1 mL) VIAL ONE (14:02)
[2024-05-09 14:59] LABS: Bacteria/HPF None Seen HPF (None Seen); Bilirubin Negative (Negative); Blood, Urine Negative (Negative); CAUTI Indications for Culture Pelvic or flank pain; Clarity Clear (Clear); Glucose, Urine (Dipstick) Normal (Negative); Ketone, Urine Negative (Negative); Leukocyte Negative Leu/uL (Negative); Nitrite Negative (Negative); Protein, Urine (Dipstick) 30 mg/dL (Neg-Trace); RBC/HPF 0-3 HPF (0-3); Squamous Epithelial 0-3 HPF (0-3); Urobilinogen Normal mg/dL (Less than 2); WBC/HPF 0-3 HPF (0-3); pH, Urine 6.5 (5.0-9.0)
[2024-05-09 15:01] LABS: Specific Gravity, Urine 1.055 (1.002-1.036); Urine Culture Reflex No No
[2024-05-09] MEDS ORDERED: Ondansetron ODT 4 MG TAB SL PRN (15:27)
[2024-05-09] MEDS ORDERED: Ondansetron PF 4 MG/2 ML Vial IVP PRN (15:27)
[2024-05-09] MEDS ORDERED: Guaifenesin DM 100-10/5 ML UDCUP PO PRN (16:17)
[2024-05-09] MEDS ORDERED: Lorazepam 1 MG TAB PO PRN (16:23)
[2024-05-09] MEDS ORDERED: Lorazepam 2 MG/ML VIAL IM PRN (16:23)
[2024-05-09] MEDS ORDERED: Electrolyte Replacement Protocol FS SCH (16:30)
[2024-05-09] MEDS ORDERED: Lactated Ringer's 1,000 ML IV SCH (16:30)
[2024-05-09 16:41] VITALS: BMI 31.0
[2024-05-09] MEDS: Thiamine HCl 200 MG/2 ML VIAL SLOW IVP SCH (17:25)
[2024-05-09] MEDS: Lorazepam 1 MG TAB PO SCH (17:25)
[2024-05-09] MEDS: Pantoprazole 40 MG VIAL IVP SCH (17:26)
[2024-05-09] MEDS: Lactated Ringer's 1,000 ML IV SCH (17:26)
[2024-05-09] MEDS: FLU (Fluarix Triv) TS24-25(6MOS UP)/PF 45 MCG/0.5 ML Syringe IM ONE (17:37)
[2024-05-09] MEDS: Morphine 2 MG/ML VIAL SLOW IVP PRN (18:05)
[2024-05-10] MEDS ORDERED: Morphine 4 MG/ML VIAL SLOW IVP PRN (03:22)
[2024-05-10] MEDS: Morphine 2 MG/ML VIAL SLOW IVP SCH (03:29)
[2024-05-10] MEDS ORDERED: Morphine 4 MG/ML VIAL SLOW IVP SCH (03:30)
[2024-05-10 06:38] LABS: #Basophils 0.05 10x3/uL (0.0-0.2); %Basophils 0.7 % (0.0-1.0); %Eosinophils 2.1 % (0.0-10.0); %Lymphocytes 20.3 % (21.0-51.0); %Monocytes 7.3 % (0.0-10.0); %Neutrophils 69.5 % (42.0-75.0); Hematocrit 36.2 % (42.0-52.0); Hemoglobin 12.9 g/dL (14.0-18.0); Mean Corpuscular HGB CONC 35.6 g/dL (32.0-36.0); Mean Corpuscular Hemoglobin 33.7 pg (27.0-31.0); Mean Corpuscular Volume 94.5 fL (78.0-98.0); Mean Platelet Volume 9.8 fL (7.4-10.4); Platelet Count 246 10x3/uL (130-400); RBC Distribution Width 12.1 % (11.5-14.5); Red Blood Cell (RBC) Count 3.83 mill/uL (4.70-6.10)
[2024-05-10 06:54] LABS: ALT (SGPT) 17 U/L (8-55); AST (SGOT) 17 U/L (5-34); Albumin 3.2 g/dL (3.5-5.0); Alkaline Phosphatase 63 U/L (40-110); Anion Gap 10 mmol/L (10-20); BUN (Urea Nitrogen) 4 mg/dL (8.9-20.6); Bilirubin, Total 0.6 mg/dL (0.2-1.2); Calc. Creatinine Clearance 176 mL/min (70-130); Calcium 8.2 mg/dL (7.8-10.44); Carbon Dioxide 22 mmol/L (22-29); Chloride 106 mmol/L (98-107); Estimated GFR 121; Globulin 3.1 g/dL (2.4-3.5); Glucose 103 mg/dL (70-105); Potassium 3.3 mmol/L (3.5-5.1); Protein, Total 6.3 g/dL (6.0-8.3); Sodium 135 mmol/L (136-145)
[2024-05-10] MEDS: Potassium Chloride 20 MEQ TAB PO SCH (08:55)
[2024-05-10] MEDS: Enoxaparin 40 MG (0.4 mL) SYRINGE SC SCH (08:58)
[2024-05-10] MEDS: Pantoprazole 40 MG VIAL IVP SCH (08:58)
[2024-05-10] MEDS ORDERED: Lorazepam 1 MG TAB PO PRN (16:23)
[2024-05-11 05:59] LABS: #Basophils 0.06 10x3/uL (0.0-0.2); %Lymphocytes 28.2 % (21.0-51.0); %Monocytes 7.8 % (0.0-10.0); %Neutrophils 60.7 % (42.0-75.0); Hematocrit 38.5 % (42.0-52.0); Hemoglobin 13.7 g/dL (14.0-18.0); Mean Corpuscular HGB CONC 35.6 g/dL (32.0-36.0); Mean Corpuscular Hemoglobin 33.5 pg (27.0-31.0); Mean Corpuscular Volume 94.1 fL (78.0-98.0); Mean Platelet Volume 9.8 fL (7.4-10.4); Platelet Count 265 10x3/uL (130-400); RBC Distribution Width 11.9 % (11.5-14.5); Red Blood Cell (RBC) Count 4.09 mill/uL (4.70-6.10)
[2024-05-11 06:19] LABS: ALT (SGPT) 21 U/L (8-55); AST (SGOT) 27 U/L (5-34); Albumin 3.4 g/dL (3.5-5.0); Alkaline Phosphatase 68 U/L (40-110); Anion Gap 13 mmol/L (10-20); BUN (Urea Nitrogen) Less than 4 mg/dL (8.9-20.6); Bilirubin, Total 0.6 mg/dL (0.2-1.2); Calc. Creatinine Clearance 172 mL/min (70-130); Calcium 8.9 mg/dL (7.8-10.44); Carbon Dioxide 22 mmol/L (22-29); Chloride 104 mmol/L (98-107); Estimated GFR 120; Globulin 3.5 g/dL (2.4-3.5); Glucose 102 mg/dL (70-105); Potassium 3.5 mmol/L (3.5-5.1); Protein, Total 6.9 g/dL (6.0-8.3); Sodium 135 mmol/L (136-145)
[2024-05-11] MEDS: Potassium Chloride 20 MEQ TAB PO SCH (09:06)
[2024-05-11 11:59] VITALS: BP 140/99; TEMP 97.7
[2024-05-11] MEDS ORDERED: Lorazepam 1 MG TAB PO PRN (16:23)
[2024-05-12] MEDS ORDERED: Lorazepam 0.5 MG TAB PO PRN (16:23)
== END 2024-05-11 11:50 | disposition home or self-care (01) | DRG 440 ==
LOC: SUATTDRO 13:23 → ERS 13:23 → T4-B 15:27 → OBSVTOIN 05-10 16:59
PROVIDERS: ADMIT Internal Medicine; ATTEND Internal Medicine
DX: K85.20 Alcohol induced acute pancreatitis without necrosis or infection (principal); Z79.899 Other long term (current) drug therapy; F10.20 Alcohol dependence, uncomplicated
CPT/HCPCS: 36415; 74177; 80053; 80307; 81001; 83690; 85025; 93005; 96372; 96374; 96375; 96376; G0378; J1650; J1885; J2272; J2405; J2470; J3411; J7120; Q9967

== ENCOUNTER 2025-06-16 09:48 | Emergency (ER) | payer SELFPAY ==
[2025-06-16 10:35] LABS: #Basophils 0.07 10x3/uL (0.0-0.2); #Eosinophils 0.05 10x3/uL (0.0-0.7); #Monocytes 0.63 10x3/uL (0.11-0.59); #Neutrophils 8.62 10x3/uL (1.40-6.50); %Basophils 0.6 % (0.0-1.0); %Eosinophils 0.5 % (0.0-10.0); %Lymphocytes 13.5 % (21.0-51.0); %Monocytes 5.8 % (0.0-10.0); %Neutrophils 79.4 % (42.0-75.0); Hematocrit 43.2 % (42.0-52.0); Hemoglobin 15.1 g/dL (14.0-18.0); Mean Corpuscular Hemoglobin 32.4 pg (27.0-31.0); Mean Corpuscular Volume 92.7 fL (78.0-98.0); Platelet Count 305 10x3/uL (130-400); Red Blood Cell (RBC) Count 4.66 mill/uL (4.70-6.10); White Blood Cell (WBC) Count 10.85 10x3/uL (4.8-10.8)
[2025-06-16 10:54] LABS: ALT (SGPT) 17 U/L (Less than 45); AST (SGOT) 25 U/L (11-34); Albumin 4.4 g/dL (3.1-4.5); Alkaline Phosphatase 92 U/L (40-110); Anion Gap 14 mmol/L (10-20); BUN (Urea Nitrogen) 8 mg/dL (8.9-20.6); Bilirubin, Total 0.6 mg/dL (0.3-1.2); Calc. Creatinine Clearance 0 mL/min (70-130); Calcium 8.9 mg/dL (7.8-10.44); Carbon Dioxide 16 mmol/L (22-29); Chloride 110 mmol/L (98-107); Globulin 3.8 g/dL (2.4-3.5); Glucose 113 mg/dL (70-105); Lipase 155 U/L (8-78); Potassium 4.0 mmol/L (3.5-5.1); Sodium 136 mmol/L (136-145)
[2025-06-16] MEDS ORDERED: Ondansetron PF 4 MG/2 ML Vial ONE (11:14)
[2025-06-16] MEDS ORDERED: Ketorolac Tromethamine 30 MG (1 mL) VIAL ONE (11:14)
[2025-06-16 11:18] LABS: Bacteria/HPF None Seen HPF (None Seen); CAUTI Indications for Culture Dysuria,urgency,freq; Glucose, Urine (Dipstick) Normal (Negative); Leukocyte Negative Leu/uL (Negative); Protein, Urine (Dipstick) 30 mg/dL (Neg-Trace); RBC/HPF None Seen HPF (0-3); Specific Gravity, Urine 1.042 (1.002-1.036); WBC/HPF 0-3 HPF (0-3)
[2025-06-16 11:22] LABS: Urine Culture Reflex No No
== END 2025-06-16 14:00 | disposition home or self-care (01) ==
LOC: ERS 09:48
DX: K85.90 Acute pancreatitis without necrosis or infection, unspecified (principal)
CPT/HCPCS: 36415; 71045; 74178; 80053; 81001; 83690; 84484; 85025; 93005; 96374; 96375; 96376; J1885; J2270; J2405